=== PATIENT | male | born 1955 | race Caucasian/White ===

== ENCOUNTER 2022-03-09 09:00 | Outpatient (CLI) | payer MEDICARE, OTHER, SELFPAY ==
--- NOTE | ~2022-03-09 | XR_ITS ---
EXAMINATION: XR lumbar spine 2-3V DATE: 03/09/2022 09:21 INDICATION: Patient status post lumbar fusion TECHNIQUE: Anteroposterior and lateral views of the lumbar spine, and cone-down lateral view of the l umbosacral junction were obtained. COMPARISON: None. FINDINGS: There are changes of posterior fusion from L4 through S1. An interbody device is present at L4-5. There is grade 1 anterolisthesis of L5 on S1. There is severe loss of intervertebral disc spac e height at L5-S1. Mild to moderate loss of disc space height is seen throughout the remainder of the lumbar spine. The vertebral body heights are normal. There is no fracture. Degenerative osteophytes project from the anterior endplates of multiple vertebral bodies. There is calcified atherosclerosis of the abdominal aorta which appears to measure up to 3.5 cm. IMPRESSION: 1. Severe lumbar spondylosis with changes of anterior and posterior fusion in the lower lumbar spine. 2. Possible fusiform infrarenal abdominal aortic aneurysm. Recommend correlation with any prior avail able imaging. Reviewed, dictated and finalized at location A. IMPRESSION: 1. Severe lumbar spondylosis with changes of anterior and posterior fusion in t he lower lumbar spine. 2. Possible fusiform infrarenal abdominal aortic aneurysm. Recommend correlatio n with any prior available imaging.
== END 2022-03-09 09:01 | disposition home or self-care (01) ==
PROVIDERS: PCP Internal Medicine; Visit Provider Neurological Surgery
DX: Z98.1 Arthrodesis status (principal); M47.896 Other spondylosis, lumbar region
CPT/HCPCS: 72100

== ENCOUNTER 2023-07-23 15:53 | Outpatient (CLI) | payer MEDICARE, OTHER, SELFPAY ==
--- NOTE | ~2023-07-23 | XR_ITS ---
EXAMINATION: XR lumbar spine min 4V DATE: 07/23/2023 16:33 INDICATION: Low back pain, unspecified. TECHNIQUE: 5 views of lumbar spine including flexion and extension views were obtained. COMPARISON: Lumbar spine radiographs 03/09/2022 FINDINGS: There is 9 degrees levocurvature of thoracolumbar spine. There are changes of anterior fusi on procedure at L4-L5 with interbody device. There are changes of posterior fusion procedure from L4 to S1 with pedicle screws. There is 4 mm retrolisthesis of L1 on L2 and L2 on L3. There is 9 mm anter olisthesis of L5 on S1. There is no abnormal motion with flexion or extension. There is mild chronic anterior wedging of L1 vertebral body. There is mildly decreased disc height at L1-L2 and severely de creased disc height at L2-L3, L3-L4, and L5-S1. IMPRESSION: 1. Severe lumbar spondylosis. 2. Anterior fusion procedure at L4-L5 and posterior fusion procedure from L4 to S1. Reviewed, dictated and finalized at location E. H WORKER
== END 2023-07-23 15:54 | disposition home or self-care (01) ==
PROVIDERS: PCP Internal Medicine; Visit Provider Physician Assistant
DX: M43.06 Spondylolysis, lumbar region (principal); M43.26 Fusion of spine, lumbar region; M43.27 Fusion of spine, lumbosacral region
CPT/HCPCS: 72110

== ENCOUNTER 2023-08-06 10:39 | Outpatient (CLI) | payer MEDICARE, OTHER, SELFPAY ==
--- NOTE | ~2023-08-06 | MR_ITS ---
EXAMINATION: MR lumbar spine wo con DATE: 08/06/2023 11:16 INDICATION: Lumbar arthrodesis status TECHNIQUE: Magnetic resonance imaging (MRI) of the lumbar spine was performed without intravenous con trast. Sequences included sagittal T2-weighted FSE, sagittal fluid sensitive FSE STIR, sagittal T1-we ighted FSE, and axial T2-weighted FSE. COMPARISON: Lumbar spine radiographs dated 07/23/2023 FINDINGS: 6 degrees lumbar levocurvature. 3 mm retrolisthesis L1 on L2, 4 mm retrolisthesis L2 on L3, 3 mm retr olisthesis L3 on L4 and 9 mm anterolisthesis L5 on S1. L5 laminectomy and partial L4 laminectomy. The remaining spinous processes of L4 is fused to the inferior margin of the L3 spinous process. L4-5 an terior spinal fusion with magnetic field artifact associate with interbody fusion device. L4-S1 poste rior spinal fusion with additional magnetic field artifact associated with bilateral vertical rustam and pedicle screw fixation. Minimal likely physiologic anterior wedging at T11-L1. There is chronic appe aring mild right posterior vertebral body height loss at L5. There are fibrovascular and fibrofatty d egenerative endplate changes throughout the lumbar spine. Marrow signal is otherwise unremarkable. Se shanice disc height loss at L5-S1, moderate to severe disc height loss with right-sided predominance at L2-L3 and with posterior predominance at L3-L4, moderate disc height loss at L1-L2 and mild disc heig ht loss at T10-T11 through T12-L1. The conus medullaris terminates at L1. There is normal signal in t he caudal spinal cord. The following disc levels are specifically discussed: T12-L1: Disc is minimally bulging. There is moderate bilateral facet joint osteoarthritis. There is n o neural foraminal stenosis. There is no central canal stenosis. L1-L2: Disc is bulging. There is moderate bilateral facet joint osteoarthritis. There is moderate michael ateral neural foraminal stenosis. There is mild central canal stenosis. L2-L3: Disc is bulging. There is hypertrophy of the ligamentum flavum. There is moderate bilateral fa cet joint osteoarthritis. There is moderate left and moderate to severe right neural foraminal stenos is. There is mild to moderate central canal stenosis. L3-L4: Disc is bulging. There is severe bilateral facet joint osteoarthritis. There is moderate to se shanice bilateral neural foraminal stenosis. There is mild central canal stenosis. L4-L5: Anterior and posterior spinal fusion along with posterior decompression.. There is mild to mod erate left and moderate right neural foraminal stenosis. There is no central canal stenosis. L5-S1: Disc is bulging. Posterior spinal fusion and posterior decompression. There is moderate bilate ral neural foraminal stenosis. There is no central canal stenosis. IMPRESSION: 1. Severe lumbar spondylosis. 2. Instrumented anterior L4-L5 and posterior L4-S1 spinal fusion. Reviewed, dictated and finalized at location A. RLEADING COACH
== END 2023-08-06 10:40 | disposition home or self-care (01) ==
PROVIDERS: PCP Internal Medicine; Visit Provider Physician Assistant
DX: Z98.1 Arthrodesis status (principal); M47.896 Other spondylosis, lumbar region
CPT/HCPCS: 72148

== ENCOUNTER 2024-08-17 14:09 | Outpatient (CLI) | payer MEDICARE, OTHER, SELFPAY ==
--- NOTE | ~2024-08-17 | CT_ITS ---
CT cervical spine wo con Ordering provider: Agapito Mcgarry MD History: . M50.21 - Other cervical disc displacement, high cervical ... . Comparison: None. Technique: CT of the cervical spine was performed without contrast. Sagittal and coronal reformatted images were also obtained and reviewed. Automated exposure control and iterative reconstruction keren hnique were employed. The dose-length product was 528.63 mGy-cm. FINDINGS: VERTEBRAE: No subluxation or acute fracture. The occipital condyles are intact. Postoperative change s seen at the level of 4, C5 and C6. DISC SPACES: Disc Spacers seen at the level of C4-C5, and C5-C6. Severe narrowing of the disc C3-C4 and C6-C7. Narrowing of the disc T1- T2 and T2-T3 is also noted. Multilevel facet joint disease. Mult ilevel uncovertebral joint osteoarthritic changes. Narrowing of the left foramina at the level of C2-C3. Bilateral narrowing of the foramina at the level of C3-C4. Bilateral narrowing of the foramina at the level of C4-C5, C5-C6 and C6-C7 by osteophytes. PARASPINOUS SOFT TISSUES: Normal. IMPRESSION: No acute osseous abnormality cervical spine. Postoperative changes. Multilevel degenerative disc disease. Reviewed, dictated and finalized at location A. OR LINUX ADMINISTRATOR
== END 2024-08-17 14:10 | disposition home or self-care (01) ==
PROVIDERS: PCP Internal Medicine; Visit Provider Neurological Surgery
DX: M50.33 Other cervical disc degeneration, cervicothoracic region (principal); M50.21 Other cervical disc displacement, high cervical region; M47.812 Spondylosis without myelopathy or radiculopathy, cervical region
CPT/HCPCS: 72125

== ENCOUNTER 2024-09-15 09:28 | Outpatient (CLI) | payer MEDICARE, OTHER, SELFPAY ==
[2024-09-15 11:40] LABS: Hematocrit 38.6 % (42.0-52.0); Hemoglobin 13.1 g/dL (14.0-18.0); Mean Corpuscular HGB Conc 33.9 g/dl (32-36); Mean Corpuscular Hemoglobin 32.3 pg (26-34); Mean Corpuscular Volume 95.3 fl (80-100); Mean Platelet Volume 9.1 fl (7.4-10.4); Platelet Count Result 207 k/mm3 (150-375); Red Blood Count 4.05 M/mm3 (4.6-6.20); Red Cell Distribution Width 14.9 % (11.5-14.5); White Blood Count 6.6 K/mm3 (4.5-10.0)
[2024-09-15 11:41] LABS: Add Urine Microscopic? NO; Appearance Urine Clear (Clear); Bilirubin Urine Negative (Negative); Blood Urine Negative (Negative); Color Urine Yellow (Yellow); Glucose Urine UA Negative (Negative); Ketones Urine Negative (Negative); Leukocyte Esterase Ur Negative LEU/UL (Negative); Nitrate Urine Negative (Negative); Protein Urine Negative (Negative); Specific Grav Ur 1.018 (1.001-1.035); Urobilinogen Urine 0.2 mg/dL (<2.0)
[2024-09-15 11:51] LABS: Prothrombin Time 13.8 Seconds (11.1-14.7)
[2024-09-15 11:52] LABS: Partial Thromboplastin Time 27.7 Seconds (22.3-36.8)
[2024-09-15 12:05] LABS: Anion Gap 1 mmol/L (4-12); Blood Urea Nitrogen 41 mg/dL (9-20); Calcium 9.4 mg/dL (8.4-10.2); Carbon Dioxide 31 mmol/L (22-30); Chloride 105 mmol/L (98-107); Estimated Glomerular Filt Rate 60; Glucose 110 mg/dL (65-110); Potassium 4.9 mmol/L (3.4-5.0); Sodium 137 mmol/L (137-145)
== END 2024-09-15 09:29 | disposition home or self-care (01) ==
LOC: ANHSURGERY 09:34
PROVIDERS: PCP Internal Medicine; Visit Provider Neurological Surgery
DX: Z01.812 Encounter for preprocedural laboratory examination (principal); M47.812 Spondylosis without myelopathy or radiculopathy, cervical region; M50.20 Other cervical disc displacement, unspecified cervical region; Z79.899 Other long term (current) drug therapy
CPT/HCPCS: 36415; 80048; 81003; 85027; 85610; 85730

== ENCOUNTER 2024-10-03 00:16 | Day surgery (SDC) | payer MEDICARE, OTHER, SELFPAY ==
[2024-09-15 10:01] VITALS: BP 128/60; PULSE 91; RESP 16; TEMP 36.6; O2SAT 97; BMI 39.0
--- NOTE | 2024-09-15 10:38 | PC.NURSE ---
Report to the Outpatient Waiting Room, entrance under the green pavilion located off [facility], at time ___11:00AM____ on date __10/03/24 . Planned Procedure Time: ___1:00PM .? Time changes happen often and if your time is changed the preop area will call you the afternoon before. - You and your visitor will be asked to self-screen and do not enter if you have any COVID symptoms. Please call surgeon if you need to reschedule. - A mask is optional within the hospital at this time. Patients may have clear liquids (water, carbonated beverages, clear teas, apple juice) until 3 hours prior to surgery with a maximum of 20 ounces. - No food from midnight until time of surgery and no smoking. This includes no chewing gum, candy or mints. Take only the following medications with a SIP of water on the morning of surgery: GABAPENTIN DO NOT STOP ANY OF YOUR OTHER PRESCRIPTION MEDICATIONS PRIOR TO SURGERY EXCEPT THE FOLLOWING Medications to discontinue per physician ___HOLD ALL VITAMINS/SUPPLEMENTS 7 DAYS PRE-OP PER DR HARP- LAST DOSE 09/25/24 HOLD METHOTREXATE 1 WEEK PRE-OP and 2 WEEKS POST-OP PER METAL CONTROL WORKER- LAST DOSE 09/25/24 Please no make-up, nail macedonian, hairspray, perfume, deodorant, or body powder the day of surgery.? No jewelry (including any body piercings) or valuables the day of surgery, leave them at home.? Please take a shower or bath the night before, or the morning of, surgery with an antibacterial soap.? Wear comfortable, loose fitting clothing.? Children are encouraged to wear pajamas. - Jewelry must be removed prior to entering the operating room.? Rings and piercings that are not removed may be cut off. - The hospital will not accept responsibility for valuables.? - Please leave all valuables, including medications, at home the day of surgery. If you are going home after surgery, a licensed lumber driver must drive you home.? - NO public transportation without another adult if you receive anesthesia. - We recommend that an adult stay with you for 24 hours following discharge. - We also recommend that you do not drive, make important decision, drink alcoholic beverages, or take any drugs that were not prescribed by your health care provider for at least 24 hours after your discharge time. Follow any additional instructions given to you from your surgeon. Telephone instructions given to ____PATIENT and asked if any additional questions and then verbalized understanding. Patient advised to call surgeon office or pre surgery nurse liaison [phone] if any additional questions.
--- NOTE | 2024-10-02 15:36 | P.PNAN_ITS ---
Anes - Initial Pre Proc Eval Procedure: Operation Date: 10/03/24 13:00 Proposed Procedures p C3, C4, Anterior Cervical Discectomy with Fusion - Agapito Mcgarry MD Date/Time: 10/02/24 15:36 Surgeon: Agapito Mcgarry MD Pre Op Diagnosis: c3,c4 herniated nucleus pulposus, spondylolysis Patient Data Age: 69 Gender: M Height: 1.79 m Weight: 125.2 kg Last Vital Signs Temp 36.6 C 09/15/24 10:01 Pulse 91 09/15/24 10:01 Resp 16 09/15/24 10:01 BP 128/60 09/15/24 10:01 Pulse Ox 97 09/15/24 10:01 O2 Del Method Room Air 09/15/24 10:01 Allergies Allergy/AdvReac Type Severity Reaction Status Date / Time Penicillins Allergy Rash Verified 09/15/24 09:42 Home Medications ?Medication ?Instructions ?Recorded ?Confirmed ?Type cholecalciferol (vitamin D3) 25 25 mcg PO DAILY 03/09/22 10/03/24 History mcg (1,000 unit) capsule cyclobenzaprine 10 mg tablet 10 mg PO TID 03/09/22 10/03/24 History folic acid 1 mg tablet 1 mg PO DAILY 03/09/22 10/03/24 History gabapentin 300 mg capsule 600 mg PO Q8H PAIN 03/09/22 10/03/24 History uxppqlxv-oxe-kizpb acid 0.4 1 tablet PO DAILY 03/09/22 10/03/24 History mg-lycopene 300 mcg-lutein 250 mcg tablet (Centrum Silver) niacin 500 mg capsule,extended 500 mg PO QHS 03/09/22 10/03/24 History release vitamin B complex 1 tablet PO DAILY 03/09/22 10/03/24 History allopurinol 100 mg tablet 200 mg PO BID 09/15/24 10/03/24 History famotidine 20 mg tablet 20 mg PO Q12H 09/15/24 10/03/24 History krill 1,000 mg-omega-3 170 mg-dha 1 cap PO DAILY 09/15/24 10/03/24 History 50 mg-epa 80 bg-rmmscs-vxfyx capsule (krill oil) lisinopril 20 mg tablet 20 mg PO DAILY 09/15/24 09/15/24 History methotrexate sodium 2.5 mg tablet 17 mg PO WEEKLY 09/15/24 10/03/24 History Patient hx anesthesia problems: none Family hx anesthesia problems: none Results Review: All pre-operative results and documents have been reviewed as part of the pre-op erative evaluation. [facility], [facility] Past Medical History Medical History (Updated 10/02/24 @ 15:37 by Miguel Stack DO) GERD (gastroesophageal reflux disease) ABRAHAM (obstructive sleep apnea) Hyperlipidemia Arthritis Hypertension Surgical History Surgical History History of bunionectomy Total knee replacement status History of lumbar spinal fusion Family History Family History Other Diabetes mellitus Heart disease Hypertension Social History Social History Smoking packs per day: 1 Smoking cigarettes per day: 20.0 Years smoked: 36 Smoking pack-years: 36.00 Smoking status: Former smoker Tobacco type: cigarettes Smoking end date: 03/13/97 Alcohol intake: former Alcohol use details: RECOVERING ALCOHOLIC, QUIT 1991 Substance use: never Substance use type: does not use Do You Feel Safe in your Home?: Yes Lack of Transportation: No Lack of Food: Never True Current Housing: I Have Housing Concerned About Future Housing: No Difficulty Paying Gas/Electric Bills: No Difficulty Paying for Meds: No Currently Unemployed: No Education: High School Diploma/GED Difficulty w/ Childcare or Family Care: No Living arrangements: with family Additional living arrangements comments: Occupation/Education: retired Spiritual care concerns: No Anes - Eval Final PreProcedure Day of Procedure 10/02/24 15:36 Patient weight: obese Heart: regular rate and rhythm Lungs: clear to auscultation Airway: Mallampati scale class II Neurological: alert and oriented Last oral intake: >/= 8 hours ASA classification: III Emergent: no Anesthetic plan: proceed Anesthesia type and monitoring: general ETT and standard monitoring Results Review: All pre-operative results and documents have been reviewed as part of the pre- operative evaluation. Informed Consent: The patient's anesthetic plan and its attendant risks and benefits were discussed with the patient/family/POA. Questions were solicited and answers provided to the satisfaction of the patient/family/POA.
[2024-10-03] VITALS (14 sets, daily range): BP systolic 118–150; BP diastolic 54–88; PULSE 75–105; RESP 12–16; TEMP 35.7–36.6; O2SAT 94–100; BMI 34.0
--- NOTE | ~2024-10-03 | XR_ITS ---
EXAMINATION: XR fluoroscopy no charge DATE: 10/03/2024 14:48 INDICATION: C3-C4 anterior cervical discectomy with fusion TECHNIQUE: 2 lateral fluoroscopic images of the cervical spine were obtained during procedure perform ed by Dr. Mcgarry. Radiologist was not present for the imaging or procedure. The amount of fluorosco py time used during this procedure was 0.1 minutes. Total DAP was 0.241 Gycm^2 COMPARISON: 08/17/2024 FINDINGS: Initial image demonstrates metallic probe ejecting over a prominent anterior inferior endplate osteop hyte of C3. Partially visualized anterior plate and screw fixation at C4 which on prior CT extends to C5 and C6. Subsequent images demonstrate a C3-C4 discectomy with anterior plate and screw fixation a t C3-C4. IMPRESSION: 1. Fluoroscopy utilized during C3-C4 discectomy and instrumented anterior spinal fusion. See procedur e note for further detail. Reviewed, dictated and finalized at location A. [facility] SPECIALIST IMPRESSION: 1. Fluoroscopy utilized during C3-C4 discectomy and instrumented anterior spina l fusion. See procedure note for further detail.
[2024-10-03] MEDS: LACTATED RINGERS 1,000 ML 30 ML IV CONT ×2 (11:00→15:01)
--- NOTE | 2024-10-03 12:44 | P.HP_ITS ---
H&P: HPI History of Present Illness Date/Time: 10/03/24 12:44 Chief Complaint: Neck and arm pain Narrative: Joel is a 61-year-old gentleman who is well known me for problems related to his back and who underwent an adjacent level lumbar fusion in 2020. He is here today for anterior cervical diskectomy and fusion. He had a dorsal column stimulator placed subsequently for recurrent discomfort that continues to bother him. The stimulator worked at [facility], and the trial was very helpful, but the permanent implant has not been as helpful. However, that is not why he is here today. He has new pain in his neck that radiates to between his shoulder blades on the right with shoulder pain bilaterally. He has pain at the top of his spine that radiates into his head and causes headache mostly on the right side occipitally. All these problems have been present for about 6 months progressively. He underwent some sort of injection in his neck or upper back without benefit. He has a decreased range of motion in all planes. This is especially in extension and right lateral rotation. He does not report specific muscle group weakness of either upper extremity. He is not having any bowel or bladder difficulty related any of this. His pain seems to be worse with range of motion of the neck and with activity involving the upper extremities. It also happens to him at night. Review of Systems Review of Systems: All systems reviewed & are unremarkable except as noted in HPI and below Denies chills, Denies fever, Denies weight gain and Denies weight loss Eyes Denies change in vision and Denies diplopia ENT Denies disequilibrium Card Denies chest pain and Denies dyspnea Resp Denies cough and Denies dyspnea GI Denies abdominal pain, Denies change in bowel habits, Denies fecal incontinence and Denies vomiting Denies hematuria, Denies oliguria, Denies difficulty urinating, Denies dysuria, Denies urinary frequency, Denies urinary hesitancy, Denies urinary incontinence and Denies urinary urgency Musc Reports as per HPI Skin/ Breast Reports system reviewed and no additional complaints, except as documented Neuro Reports as per HPI Psych Reports no additional complaints, Denies depression and Denies hopelessness Endo Reports no additional complaints and Denies polyuria Jay/ Lymph Reports no additional complaints Aller/ Immun Reports no additional complaints [facility] Past Medical History Medical History (Updated 10/02/24 @ 15:37 by Miguel Stack DO) GERD (gastroesophageal reflux disease) ABRAHAM (obstructive sleep apnea) Hyperlipidemia Arthritis Hypertension Surgical History Surgical History History of bunionectomy Total knee replacement status History of lumbar spinal fusion Family History Family History Other Diabetes mellitus Heart disease Hypertension Social History Social History Smoking packs per day: 1 Smoking cigarettes per day: 20.0 Years smoked: 36 Smoking pack-years: 36.00 Smoking status: Former smoker Tobacco type: cigarettes Smoking end date: 03/13/97 Alcohol intake: former Alcohol use details: RECOVERING ALCOHOLIC, QUIT 1991 Substance use: never Substance use type: does not use Do You Feel Safe in your Home?: Yes Lack of Transportation: No Lack of Food: Never True Current Housing: I Have Housing Concerned About Future Housing: No Difficulty Paying Gas/Electric Bills: No Difficulty Paying for Meds: No Currently Unemployed: No Education: High School Diploma/GED Difficulty w/ Childcare or Family Care: No Living arrangements: with family Additional living arrangements comments: Occupation/Education: retired Spiritual care concerns: No Meds Home Medications and Allergies Home Medications ?Medication ?Instructions ?Recorded ?Confirmed ?Type cholecalciferol (vitamin D3) 25 25 mcg PO DAILY 03/09/22 10/03/24 History mcg (1,000 unit) capsule cyclobenzaprine 10 mg tablet 10 mg PO TID 03/09/22 10/03/24 History folic acid 1 mg tablet 1 mg PO DAILY 03/09/22 10/03/24 History gabapentin 300 mg capsule 600 mg PO Q8H PAIN 03/09/22 10/03/24 History byuilzde-dif-maqbt acid 0.4 1 tablet PO DAILY 03/09/22 10/03/24 History mg-lycopene 300 mcg-lutein 250 mcg tablet (Centrum Silver) niacin 500 mg capsule,extended 500 mg PO QHS 03/09/22 10/03/24 History release vitamin B complex 1 tablet PO DAILY 03/09/22 10/03/24 History allopurinol 100 mg tablet 200 mg PO BID 09/15/24 10/03/24 History famotidine 20 mg tablet 20 mg PO Q12H 09/15/24 10/03/24 History krill 1,000 mg-omega-3 170 mg-dha 1 cap PO DAILY 09/15/24 10/03/24 History 50 mg-epa 80 nk-chvjkd-gahdk capsule (krill oil) lisinopril 20 mg tablet 20 mg PO DAILY 09/15/24 09/15/24 History methotrexate sodium 2.5 mg tablet 17 mg PO WEEKLY 09/15/24 10/03/24 History Allergies Allergy/AdvReac Type Severity Reaction Status Date / Time Penicillins Allergy Rash Verified 09/15/24 09:42 Vital Signs Vital Signs - 24 hr 10/03/24 11:40 Temperature 97.2 F L Pulse Rate 75 Respiratory Rate 16 Blood Pressure 118/54 L Pulse Oximetry 100 Oxygen Delivery Room Air Exam Narrative: General: cooperative, no acute distress, well developed, alert and awake Orientation/Consciousness: oriented to person, oriented to place and oriented to time Constitutional Limitations: no limitations Other: The patient is a normally developed, normal appearing male sitting on the examination table in no acute distress. He is awake, alert, and oriented x3 with good fund of knowledge, recall of events, and fluent speech. [facility] Head: normocephalic and atraumatic Ears: external ears normal Face/Nose/Sinus: Normal external nose present Eyes Eyelids: eyelids normal Pupils: Yes Pupils normal by confrontation EOM: EOMs intact bilaterally Neck General: Yes no meningeal signs, Yes supple and Yes no JVD Resp Effort/Inspection: normal respiratory effort and able to speak in complete sentences Cardio Rate: Yes regular rate GI Inspection: No abdominal distension Musc Other: Examination of the neck reveals no tenderness. Range of motion of the neck is full without pain in forward flexion, extension, and lateral rotation to both sides. Skin General: normal color Neuro General: Yes oriented to person, Yes oriented to place, Yes oriented to time, Yes normal cognition and Yes no meningeal signs Cranial Nerves: Yes CN's II-XII intact bilaterally Other: Motor: Strength is normal, 5/5, throughout all muscle groups of the bilateral upper extremities to direct confrontation. Sensory: Sensation is intact to light touch throughout the upper extremities bilaterally. Reflexes: Deep tendon reflexes Are difficult to elicit at the biceps, triceps or brachioradialis on either side. Sultana's sign is negative bilaterally. Gait: Gait, station, and transfers are independent and steady for short periods of time and over short distances. Psych Appearance: grossly normal Mental status: Yes mental status grossly normal Mood: congruent mood Affect: Yes normal affect Speech/Movement: Normal speech and movement present Attitude: Yes cooperative Thought Content: Normal thought content present Assessment and Plan Assessment and plan (1) Cervical disc herniation: Code(s): M50.20 - Other cervical disc displacement, unspecified cervical region Status: Acute (2) Cervical spondylosis: Code(s): M47.812 - Spondylosis without myelopathy or radiculopathy, cervical region Status: Acute Plan Joel is a 61-year-old gentleman with neck, upper back, head and potentially shoulder discomfort related to the process C3-4 including disc herniation and spondylosis. He has failed injection treatments and has had pain for several months progressively. From a surgical perspective extending his fusion up to C3 by way of C3-4 anterior cervical diskectomy and fusion would be the operation that offers the most potential for relieving his current discomfort. I therefore described to him that operation, its risks, potential benefits, the operative and postoperative course in detail and answered all his questions personally. We discussed risks including but not limited to permanent neurologic or functional deficit related injury of the trachea, esophagus, carotid artery, jugular vein, recurrent laryngeal nerve causing hoarseness or aspiration, spinal cord or nerve roots causing permanent neurologic deficit, need for reoperation secondary to infection, bleeding, CSF leak, adjacent level disease, recurrent residual pathology, instability, malposition migration of the hardware or nonunion, failure of the procedure to relieve his pain or symptoms, persistent pain, medical complications related anesthesia or surgery, etc.. He indicates understanding and elects to proceed with that operation.
--- NOTE | 2024-10-03 12:46 | WPDHPUPDATE1 ---
History and Physical Update Update Date/Time: 10/03/24 12:46 History and Physical has been reviewed, including an updated exam of the patient. There are NO changes in the patient's condition. Risks, benefits, and alternatives have been discussed and questions answered. Patient agrees to proceed with procedure.
[2024-10-03] MEDS: ceFAZolin 1 GM/NS 50 ML 1 GM/50 ML BAG IVPB (13:30)
[2024-10-03] MEDS: ceFAZolin 2 GM/D5W 50 ML 2 GM/50 ML BAG IVPB (13:30)
[2024-10-03] MEDS: LIDO 1%/EPINEPHRINE 1:100,000 20 ML VIAL 10 ML INFILTRATE (13:42)
--- NOTE | 2024-10-03 15:06 | P.OP_ITS ---
Procedure Note - Detailed Date of Procedure 10/03/24 Pre-op Diagnosis c3,c4 herniated nucleus pulposus, spondylolysis Post-op Diagnosis Same Procedure Performed C3-4 complete diskectomy and bilateral neural foraminotomy, C3-4 interbody ar throdesis utilizing peek interbody device, I factor, local autograft and integral titanium anterior plate and screws, use of the operating microscope Surgeon Agapito Mcgarry MD Anesthesia General Description of Procedure Patient was brought to the operating room in the supine position, was sedated, intubated placed under general anesthesia in routine fashion. Area of operation on the right side of his neck was examined, marked for incision, prepped and draped in routine sterile fashion. Incision was marked in the midline over the medial aspect of the sternocleidomastoid muscle for fingerbreadths above the sternal notch. This area was injected with 0.5% lidocaine with [id number] epinephrine. Intravenous antibiotics given prior to incision. Incision was made with a 10 blade scalpel. The skin was undermined the platysma muscle was divided longitudinally with its fibers using Metzenbaum scissors. A plane was then dissected medial to the sternocleidomastoid muscle down to the anterior aspect of the spine. This was done with the fingers and Metzenbaum sci ssors. A verifying x-rays obtained to verify the level of operation. Using Bovie cautery the anterior aspect of the spine and the plate below was uncovered of soft tissue. The longus colli muscle was dissected free of the anterior aspect of the spine. A self-retaining retractor was placed. [place] pins were placed into C3 and C4 distraction placed over the disc space. A Le[place]ell rongeur was used to remove the anterior osteophyte. Is much of the osteophyte was removed to bring the bone flush with the plate below. The disc spaces entered using a 15 blade scalpel. A curved curette and pituitary rongeur were used to remove as much cartilaginous endplate and disc material as possible down to the annulus and ligament posteriorly. A Midas Jerson drill was used to bur down the endplates to bleeding cortical flat surfaces as well as to begin a bony foraminotomy bilaterally. A curved curette was used to come through the annulus ligament. 2. Kerrison punch was used to remove annulus, ligament, posterior osteophyte and to complete a bony foraminotomy bilaterally. A nerve hook was placed out each foramen to confirm lack of compression. The disc space was sized a 6 mm interbody device with integral titanium plate was chosen, placed in position and secured using 216 x 4 mm anterior screws advanced in the locking mechanism plate and diagonal angle after holes were drilled with a hand drill. The locking mechanism was engaged at each screw. A verifying x-rays obtained to verify good position of the instrumentation which was confirmed. The wound was then copiously irrigated with bacitracin irrigation all bleeding stopped bipolar and Bovie cautery and Gelfoam thrombin powder. Wound was closed in layered fashion with 2-0 Vicryl interrupted sutures in the platysma muscle a nd in the dermis. The skin was closed with a running 4-0 Monocryl subcuticular stitch and dressed with Dermabond. Patient was allowed to wake up in the operating room and was taken to the recovery room in stable condition. There were no immediate complications this operation. All counts were reported correct at the end of the case. Blood loss was 80 cc. The patient was neurologically at his baseline postoperatively. CPT codes: 01301, 99027, 16449, 79074, 00878 Estimated Blood Loss 80 Complications None Condition Stable Disposition PACU [facility] Billing Surgery - Charge Forward: Surgery Billing
[2024-10-03] MEDS: fentaNYL CITRATE INJ (*CRX) 100 MCG/2 ML VIAL 25 MCG IV PUSH ×6 (15:29→16:48)
--- NOTE | 2024-10-03 17:13 | PC.NURSE ---
This patient, Joel Chaves, was admitted to Medical Room 346-01. Patient/family oriented to hospital policies and general routines including ID bracelet, bed and alarms, visiting hours, pain management, procedures, bathroom and other care routines, personal items, smoking policy, room service/diet, and visiting hours. Information on how to activate the Rapid Response Team has been discussed. Patient/Family are encouraged to report perceived risks to care and to ask questions if they do not understand what they are told or what they should do.
--- NOTE | 2024-10-03 17:35 | PCRCNOTE ---
PT. STATES HE DOES NOT WISH TO USE CPAP WHILE HE IS HERE.
[2024-10-03] MEDS: HYDROcodone/acetaminophen (*CRX) 10-325 MG TABLET 1 TAB PO ×2 (18:49→22:37)
[2024-10-03] MEDS: DOCUSATE SODIUM 100 MG CAPSULE PO (21:09)
[2024-10-03] MEDS: allopurinoL 100 MG TABLET 200 MG PO (21:09)
[2024-10-03] MEDS: NIACIN SA 500 MG TABLET PO (21:10)
[2024-10-03] MEDS: GABAPENTIN 300 MG CAPSULE 600 MG PO (21:10)
[2024-10-03] MEDS: FAMOTIDINE 20 MG TABLET PO (21:10)
[2024-10-04 02:21] VITALS: BP 129/72; PULSE 96; RESP 16; TEMP 36.4; O2SAT 93
[2024-10-04] MEDS: HYDROcodone/acetaminophen (*CRX) 10-325 MG TABLET 1 TAB PO ×3 (03:05→15:49)
[2024-10-04] MEDS: GABAPENTIN 300 MG CAPSULE 600 MG PO ×2 (05:38→13:14)
[2024-10-04 06:00] VITALS: BP 123/71; PULSE 85; RESP 20; TEMP 36.3; O2SAT 100
[2024-10-04 07:51] VITALS: BP 122/61; PULSE 97; RESP 18; TEMP 35.9; O2SAT 95
[2024-10-04] MEDS: allopurinoL 100 MG TABLET 200 MG PO (08:17)
[2024-10-04] MEDS: DOCUSATE SODIUM 100 MG CAPSULE PO (08:17)
[2024-10-04] MEDS: FAMOTIDINE 20 MG TABLET PO (08:17)
[2024-10-04] MEDS: CHOLECALCIFEROL 1,000 UNITS TABLET 1000 UNITS PO (08:17)
[2024-10-04] MEDS: MULTIVITAMINS /C LUTEIN (CENTRUM SILVER) TABLET *BKC 1 TAB PO (08:17)
[2024-10-04] MEDS: VITAMIN B COMPLEX CAPSULE 1 CAP PO (08:17)
[2024-10-04] MEDS: FOLIC ACID 1 MG TABLET PO (08:17)
[2024-10-04] MEDS: lisinopriL 20 MG TABLET PO (08:18)
[2024-10-04 11:51] VITALS: BP 118/67; PULSE 102; RESP 18; TEMP 36.1; O2SAT 96
--- NOTE | 2024-10-04 14:44 | WPDNEUROSGPN ---
Progress Note: A&P Assessment and Plan (1) Status post cervical arthrodesis: Code(s): Z98.1 - Arthrodesis status Status: Acute Plan -Discharge home today -Reviewed activity and wound care precautions at bedside -Follow up with Dr. Mcgarry in clinic in about 6 weeks Subjective Date/time seen: 10/04/24 14:44 Interval history: Doing well with tolerable neck pain. He has been able to eat and drink without significant difficulty; slight sore throat. Ambulated with therapy who cleared him for home. He would like to go home today. Review of Systems Review of Systems: All systems reviewed & are unremarkable except as noted in HPI and below Exam Narrative: AOx4 Full strength in all extremities Extensive bruising and subcutaneous bruising around surgical site on neck No shortness of breath, hoarseness, or breathing difficulty Objective Data Vital Signs Vital Signs: Vital Signs - 24 hr 10/03/24 15:01 10/03/24 15:15 10/03/24 15:30 Temperature 97.0 F L Pulse Rate 88 85 82 Respiratory Rate 14 12 12 Blood Pressure 125/55 L 140/64 150/71 H Pulse Oximetry 99 100 100 Oxygen Delivery Simple Face Mask Simple Face Mask Simple Face Mask Oxygen Flow Rate 8 8 8 10/03/24 15:32 10/03/24 15:45 10/03/24 16:00 Temperature Pulse Rate 79 83 Respiratory Rate 14 14 Blood Pressure 141/64 H 129/88 Pulse Oximetry 99 96 96 Oxygen Delivery Room Air Room Air Room Air Oxygen Flow Rate 10/03/24 16:15 10/03/24 16:30 10/03/24 16:45 Temperature Pulse Rate 82 79 79 Respiratory Rate 16 12 12 Blood Pressure 135/63 124/60 134/72 Pulse Oximetry 96 98 98 Oxygen Delivery Room Air Room Air Room Air Oxygen Flow Rate 10/03/24 17:20 10/03/24 17:35 10/03/24 18:05 Temperature 96.3 F L 97.0 F L 96.2 F L Pulse Rate 75 79 95 Respiratory Rate 16 16 16 Blood Pressure 130/70 126/75 150/69 H Pulse Oximetry 99 97 98 Oxygen Delivery Oxygen Flow Rate 10/03/24 20:00 10/03/24 22:34 10/04/24 02:21 Temperature 97.8 F 97.6 F Pulse Rate 105 H 96 Respiratory Rate 16 16 Blood Pressure 135/82 129/72 Pulse Oximetry 94 93 Oxygen Delivery Room Air Oxygen Flow Rate 10/04/24 06:00 10/04/24 07:51 10/04/24 10:32 Temperature 97.3 F L 96.7 F L Pulse Rate 85 97 Respiratory Rate 20 18 Blood Pressure 123/71 122/61 Pulse Oximetry 100 95 Oxygen Delivery Room Air Oxygen Flow Rate 10/04/24 11:15 10/04/24 11:51 Temperature 96.9 F L Pulse Rate 102 H Respiratory Rate 18 Blood Pressure 118/67 Pulse Oximetry 96 Oxygen Delivery Room Air Oxygen Flow Rate Intake/Output Intake/Output: Intake & Output 10/01/24 10/02/24 10/03/24 10/04/24 23:59 23:59 23:59 23:59 Intake Total 700 1080 Balance 700 1080 Meds/Results Medications: Active Medications Generic Name Dose Route Start Last Admin Trade Name Freq PRN Reason Stop Dose Admin Hydrocodone Bitart/Acetaminophen 1 tab 10/03/24 16:51 Hydrocodone/Acetaminophen (*Crx) 5-325 Mg Tablet PO Q4H PRN Mild Pain (1-3) Hydrocodone Bitart/Acetaminophen 1 tab 10/03/24 16:51 10/04/24 08:20 Hydrocodone/Acetaminophen (*Crx) 10-325 Mg Tablet PO 1 tab Q4H PRN Administration Moderate Pain (4-6) Al Hydrox/Mg Hydrox/Simethicone 20 ml 10/03/24 16:51 Mag Hydrox/Al Hydrox/Simeth 30 Ml Udc PO Q4H PRN Indigestion/Heartburn Allopurinol 200 mg 10/03/24 21:00 10/04/24 08:17 Allopurinol 100 Mg Tablet PO 200 mg Q12HR PATRICIA Administration Bisacodyl 10 mg 10/03/24 16:51 Bisacodyl 10 Mg Suppository RECTAL DAILY PRN Constipation Docusate Sodium 100 mg 10/03/24 21:00 10/04/24 08:17 Docusate Sodium 100 Mg Capsule PO 100 mg Q12HR PATRICIA Administration Famotidine 20 mg 10/03/24 21:00 10/04/24 08:17 Famotidine 20 Mg Tablet PO 20 mg Q12HR PATRICIA Administration Folic Acid 1 mg 10/04/24 09:00 10/04/24 08:17 Folic Acid 1 Mg Tablet PO 1 mg DAILY PATRICIA Administration Gabapentin 600 mg 10/03/24 22:00 10/04/24 13:14 Gabapentin 300 Mg Capsule PO 600 mg Q8H PATRICIA Administration Lisinopril 20 mg 10/04/24 09:00 10/04/24 08:18 Lisinopril 20 Mg Tablet PO 20 mg DAILY PATRICIA Administration Methotrexate 17.5 mg 10/09/24 09:00 Methotrexate 2.5 Mg Tab (*Chemo) PO Mo@0900 PATRICIA Morphine Sulfate 2 mg 10/03/24 16:51 Morphine Sulfate (*Crx) 2 Mg/Ml Inj IV PUSH Q2H PRN Pain Rated 7-10 Multivitamins/Minerals 1 tab 10/04/24 09:00 10/04/24 08:17 Multivitamins /C Lutein (Centrum Silver) Tablet *Bkc PO 1 tab DAILY PATRICIA Administration Niacin 500 mg 10/03/24 21:00 10/03/24 21:10 Niacin Sa 500 Mg Tablet PO 500 mg QHS PATRICIA Administration Non-Formulary Medication 1 each 10/03/24 17:32 Nonformulary Nutritional Supplement XX 10/04/24 17:31 PRN PRN PROTOCOL Ondansetron HCl 4 mg 10/03/24 16:51 Ondansetron Inj 4 Mg/2 Ml Vial IV PUSH Q8H PRN Nausea And Vomiting Senna/Docusate Sodium 1 tab 10/03/24 16:51 Senna/Docusate Sodium Tablet PO HS PRN Constipation Vitamin B Complex 1 cap 10/04/24 09:00 10/04/24 08:17 Vitamin B Complex Capsule PO 1 cap DAILY PATRICIA Administration Vitamin D 1,000 units 10/04/24 09:00 10/04/24 08:17 Cholecalciferol 1,000 Units Tablet PO 1,000 units DAILY PATRICIA Administration Radiology Results: ITS Impressions Fluoroscopy 10/03/24 15:27 IMPRESSION: 1. Fluoroscopy utilized during C3-C4 discectomy and instrumented anterior spinal fusion. See procedure note for further detail.
== END 2024-10-04 16:35 | disposition home or self-care (01) ==
LOC: ANHSURGERY 10:26 → ANH3MED 16:58
PROVIDERS: PCP Internal Medicine; Visit Provider Neurological Surgery
PROC: (CPT 63030; principal; 2024-10-03 13:00)
DX: M47.812 Spondylosis without myelopathy or radiculopathy, cervical region (principal); M50.21 Other cervical disc displacement, high cervical region; E78.5 Hyperlipidemia, unspecified; I10 Essential (primary) hypertension; K21.9 Gastro-esophageal reflux disease without esophagitis; G47.33 Obstructive sleep apnea (adult) (pediatric); M19.90 Unspecified osteoarthritis, unspecified site; E66.9 Obesity, unspecified; Z68.34 Body mass index [BMI] 34.0-34.9, adult; Z98.890 Other specified postprocedural states; Z98.1 Arthrodesis status; Z87.891 Personal history of nicotine dependence; Z82.49 Family history of ischemic heart disease and other diseases of the circulatory system
CPT/HCPCS: 22551; 22853; 20936; 36415; 86850; 86900; 86901; 97161; 97165; 99199; A9270; C1713; J0330; J0690; J1100; J1171; J2003; J2004; J2250; J2405; J2704; J3010; J7120